=== PATIENT | female | born 1995 | race Caucasian/White ===

== ENCOUNTER 2017-05-20 18:34 | Inpatient (IN) | payer OTHER ==
[2017-05-20 20:21] LABS: URINE PH (Dip) POC 6.5 (5.0-8.5)
[2017-05-20 20:21] LABS: URINE BLOOD (Dip) POC 1+ (NEGATIVE); URINE GLUCOSE (Dip) POC Negative (NEGATIVE); URINE KETONES (Dip) POC Negative (NEGATIVE); URINE LEUKOCYTE EST (Dip) POC Negative (NEGATIVE); URINE NITRITE (Dip) POC Negative (NEGATIVE); URINE TOTAL PROTEIN POC Negative (NEGATIVE)
[2017-05-20] MEDS ORDERED: LACTATED RINGER'S 1,000 ML IV (21:54)
[2017-05-20] MEDS ORDERED: MISOPROSTOL 200 MCG TAB PR (22:00)
[2017-05-20] MEDS ORDERED: OXYCODONE/ACETAMINOPHEN (5/325) TAB PO (22:00)
[2017-05-20] MEDS ORDERED: IBUPROFEN 600 MG TAB PO (22:00)
[2017-05-20] MEDS ORDERED: BUTORPHANOL 2 MG INJ IV (22:00)
[2017-05-20] MEDS ORDERED: CARBOPROST 250 MCG INJ IM (22:00)
[2017-05-20] MEDS ORDERED: OXYTOCIN 30 UNITS/LR 500 ML IV (22:00)
[2017-05-20] MEDS ORDERED: LIDOCAINE 1% (MPF) 30 ML INJ INJ (22:00)
[2017-05-20] MEDS ORDERED: METHYLERGONOVINE 0.2 MG INJ IM (22:00)
[2017-05-20 22:55] LABS: ADD MAN DIFF? NO
[2017-05-20 23:04] LABS: BASOPHILS % 0.3 % (0.0-2.0); EOSINOPHILS # 0.1 10^3/ul (0.0-0.5); EOSINOPHILS % 0.7 % (0.0-7.0); HEMATOCRIT 38.2 % (37.0-47.0); HEMOGLOBIN 13.6 g/dl (12.0-16.0); LYMPHOCYTES # 2.2 10^3/ul (0.8-2.9); LYMPHOCYTES % 14.2 % (18.0-55.0); MEAN CORPUSCULAR HEMOGLOBIN 33.6 pg (29.0-33.0); MEAN CORPUSCULAR HGB CONC 35.6 g/dl (32.0-37.0); MEAN CORPUSCULAR VOLUME 94.3 fl (72.0-104.0); MEAN PLATELET VOLUME 11.6 fl (7.4-10.4); MONOCYTE # 1.1 10^3/ul (0.3-0.9); MONOCYTES % 7.1 % (0.0-13.0); NEUTROPHIL # 11.7 10^3/ul (1.6-7.5); NEUTROPHILS % 77.2 % (30.0-74.0); PLATELET COUNT 227 10^3/UL (140-415); RED BLOOD COUNT 4.05 10^6/ul (4.20-5.40); RED CELL DISTRIBUTION WIDTH 12.5 % (11.5-14.5)
[2017-05-20 23:04] LABS: WHITE BLOOD COUNT 15.2 10^3/ul (4.8-10.8)
[2017-05-20 23:19] LABS: INR 0.93; PROTIME 12.5 Sec (11.9-14.9)
[2017-05-20 23:20] LABS: PARTIAL THROMBOPLASTIN TIME 26.8 Sec (25.0-35.0)
[2017-05-20] MEDS: LACTATED RINGER'S 1,000 ML IV ×2 (23:22→23:23)
[2017-05-20] MEDS: AMPICILLIN 2 GM/NS (PMX) 100 ML IV (23:24)
[2017-05-20] MEDS ORDERED: FENTAnyl 2MCG/ML-ROPIV 0.2% 100 ML (23:36)
[2017-05-20] MEDS: carBAMAZepine CHEW 100 MG CHEW PO (23:43)
[2017-05-21] MEDS ORDERED: FENTAnyl 2MCG/ML-ROPIV 0.2% 100 ML BAG EPI
[2017-05-21] MEDS ORDERED: ONDANSETRON 4 MG INJ IV
[2017-05-21] MEDS ORDERED: DIPHENHYDRAMINE 50 MG INJ IV
[2017-05-21] MEDS ORDERED: NALOXONE (0.4 MG/ML) INJ IV
[2017-05-21 00:35] LABS: HEPATITIS B SURFACE ANTIGEN NEGATIVE (NEGATIVE)
[2017-05-21 00:37] LABS: RUBELLA IGG AB SCREEN NEGATIVE
[2017-05-21 00:59] LABS: HIV 1&2 ANTIBODY NEGATIVE (NEGATIVE)
[2017-05-21] MEDS: AMPICILLIN 1 GM/NS (PMX) 50 ML IV ×2 (03:02→06:00)
[2017-05-21 04:30] LABS: AMPHETAMINE/METHAMPHETAMINE Negative (NEGATIVE); BARBITURATES Negative (NEGATIVE); BENZODIAZEPINES Negative (NEGATIVE); CANNABINOIDS Negative (NEGATIVE); COCAINE Negative (NEGATIVE); OPIATES Negative (NEGATIVE)
[2017-05-21] MEDS: OXYTOCIN 30 UNITS/LR 500 ML IV ×4 (04:32→09:57)
[2017-05-21] MEDS: LACTATED RINGER'S 1,000 ML IV* ×3 (04:56→20:56)
[2017-05-21] MEDS ORDERED: OXYTOCIN 30 UNITS/LR 500 ML IV (05:00)
[2017-05-21] MEDS ORDERED: CARBOPROST 250 MCG INJ IM (05:00)
[2017-05-21] MEDS ORDERED: METHYLERGONOVINE 0.2 MG INJ IM (05:00)
[2017-05-21] MEDS ORDERED: DIBUCAINE 1% 30 GM OINT PR (05:00)
[2017-05-21] MEDS ORDERED: HYDROCODONE/APAP (5/325) TAB PO ×2 (05:00)
[2017-05-21] MEDS ORDERED: MISOPROSTOL 200 MCG TAB PR (05:00)
[2017-05-21] MEDS: IBUPROFEN 600 MG TAB PO ×4 (06:00→23:40)
[2017-05-21] MEDS: WITCH HAZEL/GLYCERIN PAD PR (06:29)
[2017-05-21] MEDS: BENZOCAINE 20% 56 ML SPRAY TOP (06:30)
[2017-05-21] MEDS: LANOLIN 7 GM TUBE TOP (09:08)
[2017-05-21] MEDS: carBAMAZepine CHEW 100 MG CHEW PO ×2 (09:08→21:14)
[2017-05-21 15:19] LABS: RAPID PLASMA REAGIN NONREACTIVE (NR)
[2017-05-21] MEDS: LACTATED RINGER'S 1,000 ML IV ×2 (19:00→21:54)
[2017-05-22] MEDS: LACTATED RINGER'S 1,000 ML IV* ×3 (04:56→20:56)
[2017-05-22] MEDS: IBUPROFEN 600 MG TAB PO ×3 (05:37→17:06)
[2017-05-22] MEDS: LACTATED RINGER'S 1,000 ML IV ×3 (05:54→21:54)
[2017-05-22 08:27] LABS: ADD MAN DIFF? NO
[2017-05-22] MEDS: carBAMAZepine CHEW 100 MG CHEW PO ×2 (08:34→21:01)
[2017-05-22 08:39] LABS: BASOPHIL # 0.1 10^3/ul (0.0-0.1); BASOPHILS % 0.5 % (0.0-2.0); EOSINOPHILS # 0.2 10^3/ul (0.0-0.5); EOSINOPHILS % 2.3 % (0.0-7.0); HEMATOCRIT 32.6 % (37.0-47.0); HEMOGLOBIN 11.2 g/dl (12.0-16.0); LYMPHOCYTES # 2.4 10^3/ul (0.8-2.9); LYMPHOCYTES % 22.9 % (18.0-55.0); MEAN CORPUSCULAR HEMOGLOBIN 33.4 pg (29.0-33.0); MEAN CORPUSCULAR HGB CONC 34.4 g/dl (32.0-37.0); MEAN CORPUSCULAR VOLUME 97.3 fl (72.0-104.0); MEAN PLATELET VOLUME 11.5 fl (7.4-10.4); MONOCYTE # 0.9 10^3/ul (0.3-0.9); MONOCYTES % 8.6 % (0.0-13.0); NEUTROPHIL # 6.7 10^3/ul (1.6-7.5); NEUTROPHILS % 64.7 % (30.0-74.0); PLATELET COUNT 180 10^3/UL (140-415); RED BLOOD COUNT 3.35 10^6/ul (4.20-5.40); RED CELL DISTRIBUTION WIDTH 12.8 % (11.5-14.5)
[2017-05-22 08:39] LABS: WHITE BLOOD COUNT 10.4 10^3/ul (4.8-10.8)
[2017-05-22] MEDS: WITCH HAZEL/GLYCERIN PAD PR (17:04)
[2017-05-22] MEDS: INFLUENZA VIRUS VACCINE 0.5 ML (DISPENSING) IM* (21:01)
[2017-05-23] MEDS: IBUPROFEN 600 MG TAB PO ×3 (06:00→12:27)
[2017-05-23] MEDS: MEASLES,MUMPS,RUBELLA VACCINE INJ SC* (09:00)
[2017-05-23] MEDS: VARICELLA VACCINE LIVE/PF 1,350 UNIT/0.5 ML ML SC* (09:00)
[2017-05-23] MEDS: carBAMAZepine CHEW 100 MG CHEW PO (09:53)
[2017-05-23] MEDS: LANOLIN 7 GM TUBE TOP (09:54)
[2017-05-23] MEDS: DIPHTH/TET/ACEL PERTUSS (ADULT) 0.5 ML VIAL IM* (15:08)
== END 2017-05-23 19:14 | disposition home or self-care (01) | DRG 775 ==
LOC: OBT 18:34 → PP1 05-21 06:22 → L-D 18:35 → OBT 21:53 → L-D 21:50
PROVIDERS: Obstetrics & Gynecology
PROC: 10E0XZZ Delivery of Products of Conception, External Approach (ICD-10-PCS; principal; 2017-05-21)
PROC: 0DQR0ZZ Repair Anal Sphincter, Open Approach (ICD-10-PCS; 2017-05-21)
PROC: 3E033VJ Introduction of Other Hormone into Peripheral Vein, Percutaneous Approach (ICD-10-PCS; 2017-05-21)
DX: O70.4 Anal sphincter tear complicating delivery, not associated with third degree laceration (principal); O71.5 Other obstetric injury to pelvic organs; Z3A.38 38 weeks gestation of pregnancy; Z37.0 Single live birth
CPT/HCPCS: 62319; 76815; 76818; 80307; 81003; 85025; 85610; 85730; 86592; 86703; 86762; 86850; 86900; 86901; 87340; 90686; 90715; 90716